=== PATIENT | male | born 1955 | race Hispanic/Latino ===

== ENCOUNTER 2017-12-28 14:24 | Outpatient (CLI) | payer OTHER ==
--- NOTE | 2017-12-28 17:11 | XRay Report ---
FINAL REPORT PROCEDURE: XR HIPS BILAT 2V W/PELVIS TECHNIQUE: AP view of the pelvis and two views of bilateral hips HISTORY: PAIN IN HIP COMPARISON: No prior studies are available for comparison. FINDINGS: There are bilateral hip joint osteoarthritic changes, with joint space narrowing and osteophyte formation. No fracture or joint dislocation is seen. No focal osseous lesions are seen. IMPRESSION: Mild bilateral hip joint osteoarthritis
== END 2017-12-28 14:25 | disposition home or self-care (01) ==
LOC: XRAY 14:24
PROVIDERS: ATTEND Internal Medicine
DX: M16.0 Bilateral primary osteoarthritis of hip (principal)
CPT/HCPCS: 73521